=== PATIENT | male | born 1955 | race Caucasian/White ===

== ENCOUNTER 2021-12-04 08:57 | Emergency (ER) | payer OTHER, SELFPAY ==
[2021-12-04 09:19] VITALS: BP 161/86; PULSE 69; RESP 14; TEMP 36.4; O2SAT 100; BMI 23.7
--- NOTE | 2021-12-04 09:29 | CRLHL7_ITS ---
For Patients: As a result of the Century Cures Act, medical imaging exams and procedure reports are released immediately into your electronic medical record. You may view this report before your referring provider. If you have questions, please contact your health care provider. INDICATION: Back pain, abdominal pain, fevers, chills. TECHNIQUE: CT abdomen and pelvis acquired with 89 mL Isovue 370 IV contrast. Coronal and sagittal reformats were generated. COMPARISON: None. FINDINGS: Lower chest: Unremarkable. Liver: Unremarkable. Gallbladder and bile ducts: Unremarkable. No stones or inflammation. No biliary dilation. Spleen: Unremarkable. Small adjacent splenule. Pancreas: Unremarkable. Adrenal glands: Unremarkable. No nodules. Kidneys and Ureters: Unremarkable. No suspicious masses, stones, or hydronephrosis. Cortical hypodensities are compatible with cysts. Lymph Nodes and Retroperitoneum: Unremarkable. Vasculature: Atherosclerotic calcifications of the abdominal aorta and its branches. GI tract: Unremarkable. Normal in caliber. Normal appendix. Scattered diverticula project from the colon, without inflammatory changes to suggest diverticulitis. Peritoneum/Abdominal Wall: Unremarkable. No mass or infiltration. No free air or free fluid. Pelvic Viscera: Unremarkable. Bladder: Unremarkable. Bones: Multilevel degenerative changes. No aggressive appearing lytic or blastic lesions. IMPRESSION: No significant CT abnormality or findings to explain the cause of the patient`s symptoms. Please note that all CT scans at this facility use dose modulation, iterative reconstruction, and/or weight-based dosing when appropriate to reduce radiation dose to as low as reasonably achievable. Dictated by Burt Victor MD @ 12/04/2021 12:03:32 PM (Electronically Signed)
[2021-12-04] MEDS: 0.9 % SODIUM CHLORIDE 1000 ml 1,000 ML IV ×2 (09:57→12:24)
[2021-12-04 10:06] LABS: Basophils Absolute Auto 0.02 K/uL (0.00-0.30); Basophils Percent Auto 0.3 % (0.0-3.0); Eosinophils Absolute Auto 0.05 K/uL (0.00-0.50); Eosinophils Percent Auto 0.7 % (0.0-7.0); Hematocrit 38.8 % (37.0-53.0); Hemoglobin* 13.5 gm/dL (13.5-17.5); Immature Granulocytes Abs Auto 0.05 K/uL (0.00-0.30); Lymphocytes Percent Auto 17.3 % (20-44); Mean Corpuscular HGB Conc 35 gm/dL (32-36); Mean Corpuscular Hemoglobin 30 pg (26-34); Mean Corpuscular Volume 87 fL (80-100); Monocytes Percent Auto 6.5 % (0.0-11.0); Neutrophils Percent Auto 74.5 % (42.0-72.0); Platelet Count* 228 K/uL (140-440); RDW Coefficient of Variation % 12.2 % (11.5-15.5); Red Blood Count 4.47 m/uL (4.30-5.90); White Blood Count* 6.89 K/uL (4.50-11.00)
[2021-12-04 10:14] LABS: Slide Review Reflex No
[2021-12-04 10:22] LABS: Albumin* 4.7 g/dL (3.3-5.0); Chloride* 102 mmol/L (96-114)
[2021-12-04 10:23] LABS: Sodium* 138 mmol/L (135-149)
[2021-12-04 10:25] LABS: Amylase* 100 U/L (18-89); Aspartate Amino Transferase* 35 U/L (12-35); Bilirubin Direct* 0.3 mg/dL (0.0-0.5); Bilirubin Total* 0.5 mg/dL (0.1-1.5); Blood Urea Nitrogen* 15 mg/dL (7-30); Carbon Dioxide* 24 mmol/L (20-32); Creatinine* 0.9 mg/dL (0.5-1.5); Est. Creatinine Clearance* 84.34; Estimated Glomerular Filt Rate 95 ml/min
[2021-12-04 10:26] LABS: Alkaline Phosphatase* 72 U/L (40-150); Calcium* 9.5 mg/dL (8.4-10.6); Glucose* 147 mg/dL (60-115); Lipase* 71 U/L (23-300)
[2021-12-04 10:28] LABS: C Reactive Protein* 0.7 mg/dL (0.5-1.0)
[2021-12-04 10:39] LABS: PCR FLU A Negative PCR FLU A (Negative); PCR FLU B Negative PCR FLU B (Negative); PCR RSV Negative PCR RSV (Negative)
[2021-12-04 10:41] LABS: SARS PCR* Negative SARS-CoV-2 (Negative)
[2021-12-04 10:41] LABS: Alanine Aminotransferase* 24 U/L (4-50)
[2021-12-04 12:24] VITALS: BP 116/62; PULSE 59; RESP 18; O2SAT 99
--- NOTE | 2021-12-04 12:43 | ED_ITS ---
HPI - Abdominal Pain General Date Seen: 12/04/21 Chief Complaint: Abdominal Pain Stated Complaint: abdominal pain with eating and drinking Time Seen by Provider: 12/04/21 09:16 Source: patient Mode of arrival: ambulatory Limitations: no limitations History of Present Illness HPI narrative: Patient is 62 for old gentleman who has had a 2D to 3 day history of lower abdominal discomfort bilaterally in his lower quadrants right side worse than left, whenever he eats, any sort of eating will trigger the pain, or drinking fluids. He has had no diarrhea associated with this, some mild nausea but no vomiting, he is worried about whether he has developed diverticulitis or colitis. He has had no fevers or chills associated with this, no blood in his stools, his stools have been pretty regular. Trying some Pepto-Bismol for this, brief reading online makes him worried about whether he is developing IBS. No radiation discomfort describes his pain is 4/10, MD elicited complaint: abdominal pain Pertinent past history: none Onset (ago): day(s) Pain Consistency: intermittent Location: RLQ and LLQ Severity: moderate Quality: cramping and stabbing Radiation: none Migration to: no migration Exacerbating factors: eating Relieving factors: nothing Associated symptoms: denies other symptoms Related Data Home Medications Medication Instructions Recorded Confirmed lisinopril 20 tab 12/04/21 mg-hydrochlorothiazide 25 mg tablet Allergies Allergy/AdvReac Type Severity Reaction Status Date / Time No Known Drug Allergies Allergy Verified 12/04/21 11:16 Review of Systems Status of ROS Reports: 10 or more systems reviewed and unremarkable except as noted in History and below PFSH PFSH Social History Smoking Status: Light tobacco smoker What tobacco products do you use: cigars Do you use any of these nicotine containing products: None Second hand tobacco smoke exposure: No How often do you have a drink containing alcohol: 2-3 times a week How many standard drinks containing alcohol do you have on a typical day: 1 or 2 How often do you have six or more drinks on one occasion: Less than monthly AUDIT-C Alcohol total score: 4 Non-prescribed substance use: denies use service: No Exam Narrative: Exam Narrative: Patient is very nice gentleman no apparent distress speaking to me normally, pupils equal round reactive to light there is no scleral icterus redness TMs are normal oropharynx normal neck is supple full range of motion, chest is clear by with no wheezing crackles noted heart sounds are normal, abdomen is soft, deep in the lower quadrants bilaterally is some mild tenderness, but no peritoneal signs, scars from previous hernia repair noted both the right and lower quadrants, but I can feel no obvious masses or transmitted pulses suggestive of a hernia. Normal male genitalia is noted, no CVA tenderness, no organomegaly, and normal bowel sounds. Extremities are all normal with normal pulses, normal neurologic function, with normal power normal sensation, skin reveals no rashes. Const: Vital Signs, click to edit/add: Vital Signs - 24 hr 12/04/21 09:19 12/04/21 12:24 Temperature 97.6 F Pulse Rate [Right Pulse Oximeter] 69 59 L Respiratory Rate 14 18 Blood Pressure [Le ft Upper Arm] 116/62 Blood Pressure [Ri ght Upper Arm] 161/86 H Pulse Oximetry 100 99 Oxygen Delivery Me thod Room Air Room Air Documenting provider has reviewed patient's vital signs: yes Course Course Hospital Course: I went back in and discussed with the gentleman, his CT scan shows no acute findings, and his laboratory work is really reassuring at the present time. I would like to get a urinalysis before he leaves, he tells me in the past this is been problematic, we will give more fluids along with another bag of IV fluids. Vital Signs Vital signs: Initial Vital Signs Temperature 97.6 F 12/04/21 09:19 Temperature Source Temporal Artery Scan 12/04/21 09:19 Pulse Rate 69 12/04/21 09:19 Respiratory Rate 14 12/04/21 09:19 Blood Pressure 161/86 H 12/04/21 09:19 Blood Pressure Mean 111 12/04/21 09:19 Blood Pressure Position Sitting 12/04/21 09:19 Pulse Oximetry 100 12/04/21 09:19 Oxygen Delivery Method 12/04/21 09:19 Vital Signs Temperature 97.6 F 12/04/21 09:19 Pulse Rate 69 12/04/21 09:19 Respiratory Rate 14 12/04/21 09:19 Blood Pressure 161/86 H 12/04/21 09:19 Pulse Oximetry 100 12/04/21 09:19 Oxygen Delivery Method 12/04/21 09:19 Temperature 97.6 F 12/04/21 09:19 Pulse Rate 59 L 12/04/21 12:24 Respiratory Rate 18 12/04/21 12:24 Blood Pressure 116/62 12/04/21 12:24 Pulse Oximetry 99 12/04/21 12:24 Oxygen Delivery Method 12/04/21 12:24 MDM - Abdominal Pain MDM Narrative Medical decision making narrative: During this evaluation of this patient I considered multiple differential diagnosis is which included the life-threatening such as appendicitis, aortic aneurysm, mesenteric ischemia, bowel perforation, volvulus, and bowel obstruction. Other differential diagnosis is include but are not limited to cholecystitis, pancreatitis, hepatitis, gastritis, GERD, diverticulitis, peptic ulcer disease, pyelonephritis/UTI, renal colic/stone, testicular torsion as well as other acute scrotal processes, inflammatory bowel disease, as well as other etiologies Medical Records Attestation: I reviewed the patient's medical records. Lab Data Attestation: I reviewed the patient's lab results. Labs: Lab Results 12/04/21 12/04/21 12/04/21 Range/Units 09:45 09:50 09:50 WBC 6.89 (4.50-11.00) K/uL RBC 4.47 (4.30-5.90) m/uL Hgb 13.5 (13.5-17.5) gm/dL Hct 38.8 (37.0-53.0) % MCV 87 (80-100) fL MCH 30 (26-34) pg MCHC 35 (32-36) gm/dL RDW Coeff of Matt 12.2 (11.5-15.5) % Plt Count 228 (140-440) K/uL Neut % (Auto) 74.5 H (42.0-72.0) % Lymph % (Auto) 17.3 L (20-44) % [place] % (Auto) 6.5 (0.0-11.0) % Eos % (Auto) 0.7 (0.0-7.0) % Baso % (Auto) 0.3 (0.0-3.0) % Neut # (Auto) 5.10 (1.7-7.0) K/uL Lymph # (Auto) 1.20 (0.90-2.90) K/uL [place] # (Auto) 0.40 (0.00-0.90) K/UL Eos # (Auto) 0.05 (0.00-0.50) K/uL Baso # (Auto) 0.02 (0.00-0.30) K/uL Abs Immat Gran (auto) 0.05 (0.00-0.30) K/uL Sodium 138 (135-149) mmol/L Potassium 4.0 (3.6-5.1) mmol/L Chloride 102 (96-114) mmol/L Carbon Dioxide 24 (20-32) mmol/L BUN 15 (7-30) mg/dL Creatinine 0.9 (0.5-1.5) mg/dL Estimated Creat Clear 84.34 Estimated GFR 95 ml/min Glucose 147 H (60-115) mg/dL Calcium 9.5 (8.4-10.6) mg/dL Total Bilirubin 0.5 (0.1-1.5) mg/dL Direct Bilirubin 0.3 (0.0-0.5) mg/dL AST 35 (12-35) U/L ALT 24 (4-50) U/L Alkaline Phosphatase 72 (40-150) U/L C-Reactive Protein 0.7 (0.5-1.0) mg/dL Total Protein 8.0 (6.0-8.3) g/dL Albumin 4.7 (3.3-5.0) g/dL Amylase 100 H (18-89) U/L Lipase 71 (23-300) U/L Urine Color (Yellow) Urine Appearance (Clear) Urine pH (5.0-8.5) Ur Specific [place] (1.000-1.030) Urine Protein (Negative) Urine Glucose (UA) (Negative) Urine Ketones (Negative) Urine Blood (Negative) Urine Nitrite (Negative) Urine Bilirubin (Negative) Urine Urobilinogen (0.2-1.0) Ur Leukocyte Esterase (Negative) Urine RBC (0-2) Urine WBC (0-5) Ur Squamous Epith Cells (None-Few) Urine Bacteria (None) SARS-CoV-2 (PCR) Negative SARS-CoV-2 (Negative) Influenza Type A (PCR) Negative PCR FLU A (Negative) Influenza Type B (PCR) Negative PCR FLU B (Negative) RSV (PCR) Negative PCR RSV (Negative) 09/13/22 Range/Units 13:00 WBC (4.50-11.00) K/uL RBC (4.30-5.90) m/uL Hgb (13.5-17.5) gm/dL Hct (37.0-53.0) % MCV (80-100) fL MCH (26-34) pg MCHC (32-36) gm/dL RDW Coeff of Matt (11.5-15.5) % Plt Count (140-440) K/uL Neut % (Auto) (42.0-72.0) % Lymph % (Auto) (20-44) % [place] % (Auto) (0.0-11.0) % Eos % (Auto) (0.0-7.0) % Baso % (Auto) (0.0-3.0) % Neut # (Auto) (1.7-7.0) K/uL Lymph # (Auto) (0.90-2.90) K/uL [place] # (Auto) (0.00-0.90) K/UL Eos # (Auto) (0.00-0.50) K/uL Baso # (Auto) (0.00-0.30) K/uL Abs Immat Gran (auto) (0.00-0.30) K/uL Sodium (135-149) mmol/L Potassium (3.6-5.1) mmol/L Chloride (96-114) mmol/L Carbon Dioxide (20-32) mmol/L BUN (7-30) mg/dL Creatinine (0.5-1.5) mg/dL Estimated Creat Clear Estimated GFR ml/min Glucose (60-115) mg/dL Calcium (8.4-10.6) mg/dL Total Bilirubin (0.1-1.5) mg/dL Direct Bilirubin (0.0-0.5) mg/dL AST (12-35) U/L ALT (4-50) U/L Alkaline Phosphatase (40-150) U/L C-Reactive Protein (0.5-1.0) mg/dL Total Protein (6.0-8.3) g/dL Albumin (3.3-5.0) g/dL Amylase (18-89) U/L Lipase (23-300) U/L Urine Color Yellow (Yellow) Urine Appearance Clear (Clear) Urine pH 5.0 (5.0-8.5) Ur Specific [place] <= 1.005 (1.000-1.030) Urine Protein Negative (Negative) Urine Glucose (UA) Negative (Negative) Urine Ketones Negative (Negative) Urine Blood Negative (Negative) Urine Nitrite Negative (Negative) Urine Bilirubin Negative (Negative) Urine Urobilinogen 0.2 (0.2-1.0) Ur Leukocyte Esterase Negative (Negative) Urine RBC 0-2 (0-2) Urine WBC 0-2 (0-5) Ur Squamous Epith Cells None (None-Few) Urine Bacteria None (None) SARS-CoV-2 (PCR) (Negative) Influenza Type A (PCR) (Negative) Influenza Type B (PCR) (Negative) RSV (PCR) (Negative) Imaging Data CT scan - abdomen: Attestation: I have reviewed the pertinent imaging results. My impression: CT scan by my review shows no acute findings Radiologist's impression: CT scan by Radiology as findings also negative Discharge Plan Discharge Clinical Impression: Abdominal pain Patient Disposition: Home, Self-Care Condition: Stable Instructions: Abdominal Pain (ED) Additional Instructions: home,rest and continue to monitor. There is no abn seen on the CT, urine or blood. I wonder if this may be related to recent illness and what we call as non specific abd pain? The good news is continue to follow, and suggest follow up with primary care for a recheck or return if worsening signs and symptoms of abd pain, fever, or vomiting. Prescriptions: No Action lisinopril-hydrochlorothiazide 20-25 mg tablet Label Comments: TAKE 1 TABLET BY MOUTH EVERY DAY Follow Up/Referrals: Bennie Billings MD [Primary Care Provider] - Stand Alone Forms: [employer] Info Instructions
[2021-12-04 13:12] LABS: Appearance Urine Clear (Clear); Bilirubin Urine Negative (Negative); Blood Urine Negative (Negative); Color Urine Yellow (Yellow); Glucose Urine Negative (Negative); Ketones Urine Negative (Negative); Leukocyte Esterase Urine Negative (Negative); Nitrite Urine Negative (Negative); Protein Urine Negative (Negative); Specific Gravity Urine <= 1.005 (1.000-1.030); Urobilinogen Urine 0.2 (0.2-1.0)
[2021-12-04 13:50] LABS: RBC Urine 0-2 (0-2); WBC Urine 0-2 (0-5)
== END 2021-12-04 14:25 | disposition home or self-care (01) ==
PROVIDERS: Emergency Provider Family Medicine; PCP Family Medicine
DX: R10.30 Lower abdominal pain, unspecified (principal)
CPT/HCPCS: 36415; 74177; 80048; 80076; 81001; 82150; 83690; 85025; 86140; 87502; 87634; 87635; 96360; 96361; 99284; J7030; Q9967

== ENCOUNTER 2025-01-21 12:11 | Outpatient (CLI) | payer MEDICARE, SELFPAY | END 2025-01-21 12:12 | disposition home or self-care (01) | LOC: AMB 02-03 15:24 | PROVIDERS: PCP Family Medicine; Visit Provider Internal Medicine | DX: T14.90XA Injury, unspecified, initial encounter (principal); V47.0XXA Car driver injured in collision with fixed or stationary object in nontraffic accident, initial encounter; Y92.524 Gas station as the place of occurrence of the external cause | CPT/HCPCS: A0998 ==